=== PATIENT | female | born 1940 | race Caucasian/White ===

== ENCOUNTER 2018-06-04 12:09 | Emergency (ER) | payer OTHER ==
[~2018-06-04] VITALS: Ht 162.6 cm; Wt 57.2 kg
[~2018-06-04 12:09] MED LIST: DIOVAN HCT 80-11 TAB PO; FOLIC ACID; GLUCOSAMINE CHO1 TAB PO; OMEGA 3 FISH OI1 CAP PO; [UNRECOGNIZED DRUG - OTHER]; [UNRECOGNIZED DRUG - OTHER]
[2018-06-04] MEDS ORDERED: BENICAR20 MG (12:35)
== END 2018-06-04 15:38 | disposition home or self-care (01) ==
LOC: ER 12:09
DX: I87.2 Venous insufficiency (chronic) (peripheral) (principal); M79.661 Pain in right lower leg

== ENCOUNTER 2024-11-06 07:50 | Emergency (ER) | payer OTHER ==
[~2024-11-06] VITALS: Ht 157.5 cm; Wt 54.4 kg
[~2024-11-06 07:50] MED LIST changes: +BENICAR20 MG
[2024-11-06] MEDS ORDERED: PANTOPRAZOLE SODIUM 40 MG in 0.9 % SODIUM CHLORIDE 8 ML IV PUSH STA (08:26)
[2024-11-06] MEDS ORDERED: SODIUM CHLORIDE 0.45 % 1,000 ML IV SCH (08:30)
[2024-11-06] MEDS ORDERED: CIPROFLOXACIN IN 5 % DEXTROSE 400 MG/200 ML PIGGYBAG IV ONE (09:00)
[2024-11-06] MEDS ORDERED: METRONIDAZOLE/SODIUM CHLORIDE 500 MG/100 ML PIGGYBACK IV ONE (09:00)
[2024-11-06] MEDS ORDERED: MEPERIDINE HCL/PF 25 MG/ML VIAL IV ONE (09:00)
[2024-11-06] MEDS ORDERED: DICYCLOMINE HCL 20 MG TABLET PO ONE (09:00)
[2024-11-06 09:09] LABS: HEMATOCRIT 36.9 % (36.0-45.00); HEMOGLOBIN 12.5 g/dL (12.0-15.00); MEAN CORPUSCULAR HEMOGLOBIN 29.5 pg (27.00-32.0); PLATELET COUNT 222 K/uL (150-450); RED BLOOD COUNT 4.24 M/uL (4.00-6.00); RED CELL DISTRIBUTION WIDTH 13.6 % (11.5-14.5)
[2024-11-06 09:20] LABS: URINE APPEARANCE Cloudy; URINE BILIRRUBIN Negative (NEGATIVE); URINE BLOOD Negative; URINE COLOR Yellow; URINE GLUCOSE Negative (NEGATIVE); URINE KETONE Trace (NEGATIVE); URINE LEUKOCYTE Large; URINE NITRATE Positive; URINE PROTEIN Negative (NEGATIVE); URINE UROBILINOGEN 0.2 E.U./dl
[2024-11-06 09:21] LABS: URINE EPITHELIAL CELLS 26.1 uL (0.0-38.8); URINE RBC 4.5 uL (0.0-20.8); URINE WBC 599.2 uL (0.0-23.2)
[2024-11-06 09:27] LABS: URINE BACTERIA > 9821.5 uL (0.0-1933); URINE CAST 0.44 uL (0.0-1.40)
[2024-11-06 09:50] LABS: AMYLASE 77 U/L (25-115); LIPASE 73 U/L (13-75)
[2024-11-06 09:56] LABS: ALBUMIN 3.6 gm/dL (3.4-5.0); BILIRUBIN TOTAL 0.53 mg/dL (0.3-1.2); CREATININE SERUM 0.92 mg/dL (0.55-1.02); GFR 58.3; GLOBULINA 3.5 G/DL (2.4-3.5); MAGNESIUM 2.2 mg/dL (1.8-2.4); POTASSIUM 4.72 mEq/L (3.5-5.1); TOTAL PROTEIN 7.1 gm/dL (6.4-8.2)
[2024-11-06] MEDS ORDERED: TAMS0.4C PO (10:53)
[2024-11-06] MEDS ORDERED: BACTRIM DS TAB1 EACH PO (10:53)
[2024-11-06] MEDS ORDERED: PEPCID AC20 MG PO (10:53)
[2024-11-06] MEDS ORDERED: CEFTRIAXONE SODIUM 1,000 MG VIAL IV ONE (11:00)
[2024-11-06] MEDS ORDERED: ONDANSETRON HCL 2 MG/ML VIAL IV ONE (11:00)
== END 2024-11-06 11:31 | disposition home or self-care (01) ==
LOC: ER 07:52
PROVIDERS: General Practice; Internal Medicine
DX: R10.32 Left lower quadrant pain (principal); K80.20 Calculus of gallbladder without cholecystitis without obstruction; N39.0 Urinary tract infection, site not specified; R10.9 Unspecified abdominal pain; I10 Essential (primary) hypertension; Z88.6 Allergy status to analgesic agent
CPT/HCPCS: 36415; 74176; 96365; 99284; J0696; J0744; J2405; J3490 ×3

== ENCOUNTER 2024-12-15 22:35 | Inpatient (IN) | payer OTHER ==
[~2024-12-15] VITALS: Ht 160 cm; Wt 51.7 kg
[~2024-12-15 22:35] MED LIST changes: +BACTRIM DS TAB1 EACH PO; +PEPCID AC20 MG PO; +TAMS0.4C PO
[2024-12-15] MEDS ORDERED: FAMOTIDINE/PF 20 MG in 0.9 % SODIUM CHLORIDE 8 ML IV PUSH STA (22:44)
[2024-12-15] MEDS ORDERED: ONDANSETRON HCL 2 MG/ML VIAL IV ONE (22:45)
[2024-12-15] MEDS ORDERED: 0.9 % SODIUM CHLORIDE 1,000 ML IV SCH (22:45)
--- NOTE | 2024-12-15 23:18 | NUR ---
PTE ALERTA Y ORIENTADA X3 EN COMPANIA DE PARAMEDICOS Y FAMILIAR QUIEN REFIERE QUE PTE ESTABA EN UN RESTAURANTE DONDE SE DEISY DE ESPALDAS Y SE GOLPEO EN LA PARTE POSTERIOR DE LA LISBET, CAUSANDOLE LACERACION LEVE. SE BYRON SV Y SE UBCIA. SE REALIZA EKG Y SE PRESENTA A DR. SWEET
[2024-12-15] MEDS ORDERED: FAMOTIDINE/PF 20 MG/2 ML VIAL ONE (23:21)
[2024-12-15] MEDS ORDERED: ONDANSETRON HCL 2 MG/ML VIAL ONE (23:21)
[2024-12-15] MEDS ORDERED: LevETIRAcetam 500 MG/5 ML VIAL IV ONE ×2 (23:30→23:57)
--- NOTE | 2024-12-15 23:52 | NUR ---
SE ORIENTA A PACIENTE SOBRE TX MEDICO, REFIERE ENTENDER. SE ORIENTA A PACIENTE SOBRE TRATAMIENTO MEDICO, REFIERE ENTENDER. SE REALIZAN MUESTRAS DE LABORATORIO BAJO MEDIDAS ASEPTICAS. SE ADMINISTRAN MEDICAMENTOS SAGAR ORDEN MEDICA. CT REALIZADO.
[2024-12-16] VITALS (8 sets, daily range): BP systolic 103–129; BP diastolic 51–63; O2SAT 93–99
[2024-12-16 00:07] LABS: PARTIAL THROMBOPLASTIN TIME 28.1 SECONDS (22.0-34.0); PROTHROMBIN TIME 10.9 SECONDS (9.0-11.5)
[2024-12-16 00:13] LABS: ALBUMIN 3.5 gm/dL (3.4-5.0); BILIRUBIN TOTAL 0.52 mg/dL (0.3-1.2); CALCIUM 9.2 mg/dL (8.5-10.1); CREATININE SERUM 0.9 mg/dL (0.55-1.02); GFR 59.8; GLOBULINA 3.8 G/DL (2.4-3.5); POTASSIUM 4.15 mEq/L (3.5-5.1); TOTAL PROTEIN 7.3 gm/dL (6.4-8.2)
[2024-12-16 00:23] LABS: HEMATOCRIT 34.7 % (36.0-45.00); MEAN CELL VOLUME 88.4 fL (80.00-100.00); MEAN CORPUSCULAR HEMOGLOBIN 30.5 pg (27.00-32.0); PLATELET COUNT 256 K/uL (150-450); RED BLOOD COUNT 3.93 M/uL (4.00-6.00); RED CELL DISTRIBUTION WIDTH 13.6 % (11.5-14.5)
[2024-12-16 00:24] LABS: MEAN CORPUSCULAR HGB CONC 34.4 g/dl (32.0-36.0)
[2024-12-16] MEDS ORDERED: CEFAZOLIN SODIUM 1,000 MG in DEXTROSE 5 % IN WATER 50 ML IV SCH (02:10)
[2024-12-16] MEDS ORDERED: 0.9 % SODIUM CHLORIDE 1,000 ML IV SCH (02:15)
[2024-12-16] MEDS ORDERED: ONDANSETRON HCL 2 MG/ML VIAL IV PRN (02:15)
[2024-12-16] MEDS ORDERED: ENALAPRILAT DIHYDRATE 1.25 MG/ML VIAL IV PRN (02:15)
[2024-12-16] MEDS ORDERED: CANDESARTAN CILEXETIL 32 MG TABLET PO SCH (09:00)
[2024-12-16] MEDS ORDERED: HYDROCHLOROTHIAZIDE 12.5 MG CAPSULE PO SCH (09:00)
[2024-12-16] MEDS ORDERED: PANTOPRAZOLE SODIUM 40 MG TABLET.DR PO SCH (09:00)
[2024-12-16] MEDS ORDERED: LevETIRAcetam 500 MG/5 ML VIAL IV SCH ×2 (09:00→21:00)
[2024-12-16] MEDS ORDERED: FAMOTIDINE/PF 20 MG/2 ML VIAL IV PUSH SCH (09:00)
[2024-12-16] MEDS ORDERED: ACETAMINOPHEN 500 MG GEL..CAP PO PRN (13:15)
[2024-12-17] VITALS (9 sets, daily range): BP systolic 125–157; BP diastolic 54–72; O2SAT 90–99
[2024-12-17 06:20] LABS: HEMATOCRIT 29.7 % (36.0-45.00); HEMOGLOBIN 10.2 g/dL (12.0-15.00); MEAN CELL VOLUME 88.5 fL (80.00-100.00); MEAN CORPUSCULAR HEMOGLOBIN 30.4 pg (27.00-32.0); MEAN CORPUSCULAR HGB CONC 34.4 g/dl (32.0-36.0); PLATELET COUNT 187 K/uL (150-450); RED BLOOD COUNT 3.36 M/uL (4.00-6.00); RED CELL DISTRIBUTION WIDTH 13.7 % (11.5-14.5)
[2024-12-17 06:46] LABS: ALBUMIN 2.6 gm/dL (3.4-5.0); BILIRUBIN TOTAL 0.46 mg/dL (0.3-1.2); CHOL HDL RATIO 2.8 (0-5.0); CREATININE SERUM 0.97 mg/dL (0.55-1.02); GFR 54.84; GLOBULINA 2.7 G/DL (2.4-3.5); POTASSIUM 4.2 mEq/L (3.5-5.1); TOTAL PROTEIN 5.3 gm/dL (6.4-8.2)
[2024-12-17 06:49] LABS: C-REACTIVE PROTEIN 1.16 MG/DL (0.00-0.29)
[2024-12-17 08:51] LABS: ERYTHROCYTE SEDIMENTATION RATE 33 mm/hr
[2024-12-17] MEDS ORDERED: AMLODIPINE BESYLATE 5 MG TABLET PO SCH (09:43)
[2024-12-17 12:47] LABS: URINE APPEARANCE CLEAR; URINE BILIRRUBIN NEGATIVE (NEGATIVE); URINE COLOR DK YELLOW; URINE GLUCOSE NEGATIVE (NEGATIVE)
[2024-12-17 12:48] LABS: PH,URINE 5.5 (5.0-8.0); URINE BLOOD NEGATIVE; URINE KETONE NEGATIVE (NEGATIVE); URINE PROTEIN NEGATIVE (NEGATIVE); URINE UROBILINOGEN 0.2 E.U./dl
[2024-12-17 12:49] LABS: URINE BACTERIA 8.5 uL (0.0-1933); URINE EPITHELIAL CELLS 7.4 uL (0.0-38.8); URINE LEUKOCYTE NEGATIVE; URINE NITRATE POSITIVE; URINE RBC 2.7 uL (0.0-20.8); URINE WBC 4.4 uL (0.0-23.2)
[2024-12-17] MEDS ORDERED: LevETIRAcetam 5 MG/1 ML REDILUIDO IV SCH (21:00)
[2024-12-18] VITALS (7 sets, daily range): BP systolic 133–142; BP diastolic 58–60; O2SAT 90–100
[2024-12-18] MEDS ORDERED: MAGNESIUM HYDROXIDE 30 ML BLIST.PACK PO NR (11:00)
[2024-12-18] MEDS ORDERED: MINERAL OIL 30 ML BLIST.PACK PO NR (11:00)
[2024-12-18] MEDS ORDERED: LACTULOSE 20 G/30 ML BLIST.PACK PO NR (11:00)
[2024-12-18] MEDS ORDERED: LEVETIRACETAM250 MG PO (17:45)
[2024-12-18] MEDS ORDERED: AMLODIPINE BESYL5 MG PO (17:46)
== END 2024-12-18 18:15 | disposition home or self-care (01) | DRG 87 ==
LOC: ER 22:35 → MEDI 12-16 02:21
PROVIDERS: General Practice; ADMIT Internal Medicine; ATTEND Internal Medicine
PROC: B020ZZZ Computerized Tomography (CT Scan) of Brain (ICD-10-PCS; principal; 2024-12-15)
PROC: BW2FZZZ Computerized Tomography (CT Scan) of Neck (ICD-10-PCS; 2024-12-15)
PROC: 4A12X4Z Monitoring of Cardiac Electrical Activity, External Approach (ICD-10-PCS; 2024-12-16)
PROC: 0HQ0XZZ Repair Scalp Skin, External Approach (ICD-10-PCS; 2024-12-16)
DX: S06.5X0A Traumatic subdural hemorrhage without loss of consciousness, initial encounter (principal); S06.6X0A Traumatic subarachnoid hemorrhage without loss of consciousness, initial encounter; S02.11HA Other fracture of occiput, left side, initial encounter for closed fracture; S01.01XA Laceration without foreign body of scalp, initial encounter; S90.819A Abrasion, unspecified foot, initial encounter; R56.9 Unspecified convulsions; I10 Essential (primary) hypertension; W01.10XA Fall on same level from slipping, tripping and stumbling with subsequent striking against unspecified object, initial encounter; Y93.89 Activity, other specified; Y92.511 Restaurant or cafe as the place of occurrence of the external cause; Y99.9 Unspecified external cause status

== ENCOUNTER 2025-01-18 07:04 | Outpatient (CLI) | payer OTHER ==
[~2025-01-18 07:04] MED LIST changes: +AMLODIPINE BESYL5 MG PO; +LEVETIRACETAM250 MG PO
== END 2025-01-18 07:05 | disposition home or self-care (01) ==
LOC: NUCLEAR 07:04
PROVIDERS: ATTEND Internal Medicine Gastroenterology
DX: K80.20 Calculus of gallbladder without cholecystitis without obstruction (principal); R10.10 Upper abdominal pain, unspecified
CPT/HCPCS: 78227; A9537

== ENCOUNTER 2025-01-30 09:23 | Outpatient (CLI) | payer OTHER | END 2025-01-30 09:27 | disposition home or self-care (01) | LOC: RAD 09:23 | PROVIDERS: ATTEND Internal Medicine | DX: M25.511 Pain in right shoulder (principal) ==

== ENCOUNTER 2025-02-01 07:56 | Outpatient (CLI) | payer OTHER | END 2025-02-01 08:01 | disposition home or self-care (01) | LOC: RAD 07:56 | PROVIDERS: ATTEND Internal Medicine | DX: M79.631 Pain in right forearm (principal); M25.511 Pain in right shoulder; M79.601 Pain in right arm ==

== ENCOUNTER 2025-06-14 11:22 | Emergency (ER) | payer OTHER ==
[~2025-06-14] VITALS: Ht 162.6 cm; Wt 54.4 kg
[~2025-06-14 11:22] MED LIST changes: +ARTHRITIS PAIN150 G1 TOP; +PREDNISONE10 MG PO; +ZANAFLEX2 MG PO
[2025-06-14 11:35] VITALS: BP 111/61; O2SAT 97
[2025-06-14] MEDS ORDERED: ATACAND4 MG (11:36)
[2025-06-14] MEDS ORDERED: 0.9 % SODIUM CHLORIDE 1,000 ML IV SCH (12:00)
[2025-06-14 13:06] LABS: BASO % 0.5 % (0.1-1.2); EOS # 0.07 (0.04-0.54); EOS % 0.6 % (0.7-7.0); LYMPH # 0.81 (1.18-3.74); LYMPH % 6.6 % (19.3-53.1); MEAN PLATELET VOLUME 10.10 fl (9.4-12.4); MONO # 0.36 (0.24-0.82); MONO % 2.9 % (4.7-12.5); NEUT # 10.95 (1.56-6.13); NEUT % 89.1 % (34.0-71.1); RED CELL DISTRIBUTION WIDTH 13.1 % (11.6-14.4)
[2025-06-14 13:25] LABS: BUN CREA RATIO 23.0 (7.0-25.0); CREATININE SERUM 0.91 mg/dL (0.55-1.02); GFR 59.04; GLUCOSE FASTING 94.0 mg/dL (65-100); OSMOLALITY SERUM 288.0 MOSM/KG (275-295)
[2025-06-14 13:52] LABS: URINE APPEARANCE Cloudy; URINE BILIRRUBIN Negative (NEGATIVE); URINE BLOOD Negative; URINE COLOR Yellow; URINE GLUCOSE Negative (NEGATIVE); URINE KETONE Negative (NEGATIVE); URINE LEUKOCYTE Large; URINE NITRATE Positive; URINE PROTEIN 30 (NEGATIVE); URINE UROBILINOGEN 0.2 E.U./dl
[2025-06-14 13:56] LABS: URINE EPITHELIAL CELLS 13.5 uL (0.0-38.8); URINE RBC 8.3 uL (0.0-20.8); URINE WBC 2204.9 uL (0.0-23.2)
[2025-06-14 14:04] LABS: COVID-19 AG NEGATIVE (NEGATIVE)
[2025-06-14 14:14] LABS: URINE BACTERIA > 9821.5 uL (0.0-1933); URINE CAST 1.02 uL (0.0-1.40)
[2025-06-14 14:18] LABS: TYPE CELLS SQUAMOUS
[2025-06-14] MEDS ORDERED: OSELTAMIVIR PHOSPHATE 75 MG CAPSULE PO ONE (14:30)
[2025-06-14] MEDS ORDERED: CEFTRIAXONE SODIUM 2,000 MG VIAL IV ONE (14:30)
[2025-06-14] MEDS ORDERED: FAMOTIDINE/PF 20 MG/2 ML VIAL IV ONE (15:00)
== END 2025-06-14 16:14 | disposition home or self-care (01) ==
LOC: ER 11:27
PROVIDERS: Emergency Medicine
DX: N39.0 Urinary tract infection, site not specified (principal); Z20.822 Contact with and (suspected) exposure to COVID-19; I10 Essential (primary) hypertension; Z88.6 Allergy status to analgesic agent
CPT/HCPCS: 36415; 71045; 96365; 96366; 99283; J0696; J3490; J7030

== ENCOUNTER 2025-09-14 09:53 | Outpatient (CLI) | payer OTHER ==
[~2025-09-14 09:53] MED LIST changes: +ATACAND4 MG; +HYDRALAZINE HCL25 MG PO; +NEURONTIN300 MG; +ZETIA10 MG
== END 2025-09-14 09:59 | disposition home or self-care (01) ==
LOC: SONOGRAMA 09:53
PROVIDERS: ATTEND Obstetrics & Gynecology
DX: R10.20 Pelvic and perineal pain unspecified side (principal)